=== PATIENT | female | born 1940 | race Caucasian/White ===

== ENCOUNTER 2016-10-16 14:07 | Emergency (ER) | payer OTHER ==
[~2016-10-16] VITALS: Ht 170.2 cm; Wt 68.0 kg
[~2016-10-16 14:07] MED LIST: ALPR-411 PO; ASPI81TA21 PO; FAMO20TA9 PO; GATI0.5S; HYDR-5688 PO; KETO0.5S22; LPR25 PO; MECL1TAB42 PO; NTRGSL/4 UT; OMEP20CA9 PO; SERT1TAB71 PO; SIMV20TA5 PO
[2016-10-16 14:10] VITALS: Ht 170.2 cm; Wt 68.0 kg
[2016-10-16] MEDS ORDERED: BUPIVACAINE 0.5 % 5 MG/1 ML MPF 30ML VIAL INFIL ONE (14:45)
[2016-10-16] MEDS ORDERED: XYLOCAINE 1%/SOD BICARB 20 ML VIAL INFIL ONE (14:45)
[2016-10-16] MEDS ORDERED: DIPHTHERIA/TETANUS/PERTUSSIS 0.5 ML SYR/VIAL IM. ONE (14:45)
--- NOTE | 2016-10-16 15:38 | EMERGENCY ROOM VISIT NOTE ---
ED Visit Note First contact with patient: 14:17 Chief Complaint: RIGHT Index and Middle Finger Laceration History of Present Illness: This patient is a 76-year-old female who presents to the Emergency Department this afternoon for evaluation of their RIGHT index finger laceration. Patient sustained the laceration while using an onion slicer. They report a moderate amount of bleeding initially. They deny any numbness or tingling into the distal extremity. They report no decreased range of motion of the affected digit. They have tried nothing for the pain. Patient rates her current discomfort as a 0/10. Patient's Tetanus status is not currently up-to-date. Medications: Reviewed and discussed with the patient. Allergies: Codeine, Lipitor PMH: No pertinent past medical history. SHx: Patient is a 76-year-old female who lives locally. ROS: All pertinent positive and negative review of systems are appropriately documented in the History of Present Illness. Physical Exam: VITAL SIGNS - Vital signs and nursing notes were reviewed. GENERAL - 76-year-old female appearing her stated age who is in no acute distress. Communicates well with provider and answers questions appropriately. SKIN - There is a 3.0 cm long laceration noted to the palmar surface of the distal RIGHT 2nd digit overlying the DIP joint. The edges gape apart with traction. No foreign bodies appreciated. Upon further examination there are no deep structures including vessel, tendon, or bony structures appreciated. There is no active bleeding noted. MUSCULOSKELETAL - Laceration as described above. +5/5 strength appreciated of the affected digit. Full range of motion of the affected digit. NEUROLOGIC - Spinothalamic tract was found to be intact with ability to discriminate sharp versus dull sensation. No sensory defects of the dorsal column were appreciated utilizing light touch for evaluation. VASCULAR - Capillary refill was brisk. ED Course: Patient was seen and evaluated by myself. Laceration repair was performed by the physician assistant fitness manager student under my direct supervision. Costs and benefits of performing primary wound closure versus no repair were discussed with the patient who verbalizes understanding. Verbal consent was obtained prior to performing the procedure. 4.0 cc of a 1-1 solution of 1% buffered lidocaine and 0.5% Marcaine was used to perform a digital block of the RIGHT 2nd digit. The wound was cleansed and prepped in the typical sterile fashion utilizing normal saline and Betadine. The wound was sterilely draped. Once proper anesthetization was established, the wound was further examined and demonstrated a full thickness laceration without disruption of the tendons or bony structures. The wound was copiously irrigated with normal saline and Betadine. The wound was closed using 14 simple, 5-0 nylon sutures with the wound edges being well approximated. Patient tolerated the procedure well. No complications were met. The wound was cleansed and dressed with a Bacitracin dressing. A metal splint was applied to the finger for comfort. Patient received their Adacel vaccination. Patient educated on worrisome symptoms for return visit to the Emergency Department. Patient discharged to home in good condition. Impression: RIGHT 2nd Digit Laceration Discharge Instructions: You have received 14 sutures on your RIGHT Index Finger. These sutures are NOT dissolvable and WILL need to be removed by a health care provider in 10-12 days. You can return to the Emergency Department or contact your Primary Care Provider to have the sutures removed. Please wear the splint for comfort until the sutures are removed. Proper wound care is essential for adequate wound healing and infection prevention. You can shower and clean the wound with soap and water. Do not scour over the wound, pat dry with a towel. Do not submerse the wound (i.e. bathe or dish wash) until the sutures have been removed. You can use an antibiotic ointment with a dressing over the wound for the next 3-4 days. After this time you may leave the wound dry and open to the air. If crust develops over the wound you can use a Q-tip to apply a 1:1 peroxide:water solution to clean the wound. Look for signs of infection of the wound including: increased pain, swelling, foul discharge, streaking, or increased temperature. If any of these are noticed you should return to the Emergency Department for further assessment and treatment. As with any laceration you may have received nerve damage to the surrounding tissues. This damage may or may not be permanent. You should keep the area covered with sunscreen for the first 6 months to 1 year when at risk for exposure to help minimize scarring. You can also use scar reducing creams or Vitamin E oil to help minimize scarring. For pain control, you can use the following [id number] medicines (if >12 yo): - Regular strength (325mg/tab) Tylenol (acetaminophen) 2 tabs every 4-6 hours as needed. Do not exceed 12 tablets in a 24 hour period. Avoid taking more than 4 grams (4000 mg) of Tylenol per day. This includes any other sources of acetaminophen you may take on a regular basis. - Regular strength (200 mg/tab) Advil (ibuprofen) 1-2 tabs every 4-6 hours as needed. Do not exceed a dose of 3200 mg per day. Return to the emergency department if your symptoms worsen despite treatment course outlined above. Current/Historical Medications Scheduled Aspirin Enteric Coated (Ecotrin Or Generic), 81 MG PO DAILY Famotidine (Pepcid), 20 MG PO QAM Metoprolol Tartrate (Lopressor), 12.5 MG PO BID Nitroglycerin (Nitrostat), 0.4 MG UT PRN Omeprazole (Prilosec), 20 MG PO DAILY Sertraline Hcl (Zoloft), 50 MG PO DAILY Simvastatin (Zocor), 20 MG PO QPM Scheduled PRN Alprazolam (Xanax), 0.5 MG PO TID PRN for Anxiety Hydrocodone/Acetaminophen 5MG/325MG (Mutual 5MG/325MG), 1 TAB PO BID PRN for Pain Meclizine Hcl (Meclizine Hcl), 25 MG PO TID PRN for DIZZY Miscellaneous Medications Gatifloxacin (Ophth) (Zymaxid) Ketorolac Tromethamine (Ophth) (Ketorolac Tromethamine) Allergies Coded Allergies: Codeine (Verified Allergy, Unknown, RASH, 10/16/16) Uncoded Allergies: LIPTOR (Allergy, Mild, RASH, 10/04/14) Departure Information Impression Primary Impression: Finger laceration Dispostion Home / Self-Care Condition GOOD Referrals Pepito Rios D.O. (PCP) Patient Instructions ED Laceration Hand, My [facility] Additional Instructions You have received 14 sutures on your RIGHT Index Finger. These sutures are NOT dissolvable and WILL need to be removed by a health care provider in 10-12 days. You can return to the Emergency Department or contact your Primary Care Provider to have the sutures removed. Please wear the splint for comfort until the sutures are removed. Proper wound care is essential for adequate wound healing and infection prevention. You can shower and clean the wound with soap and water. Do not scour over the wound, pat dry with a towel. Do not submerse the wound (i.e. bathe or dish wash) until the sutures have been removed. You can use an antibiotic ointment with a dressing over the wound for the next 3-4 days. After this time you may leave the wound dry and open to the air. If crust develops over the wound you can use a Q-tip to apply a 1:1 peroxide:water solution to clean the wound. Look for signs of infection of the wound including: increased pain, swelling, foul discharge, streaking, or increased temperature. If any of these are noticed you should return to the Emergency Department for further assessment and treatment. As with any laceration you may have received nerve damage to the surrounding tissues. This damage may or may not be permanent. You should keep the area covered with sunscreen for the first 6 months to 1 year when at risk for exposure to help minimize scarring. You can also use scar reducing creams or Vitamin E oil to help minimize scarring. For pain control, you can use the following [id number] medicines (if >12 yo): - Regular strength (325mg/tab) Tylenol (acetaminophen) 2 tabs every 4-6 hours as needed. Do not exceed 12 tablets in a 24 hour period. Avoid taking more than 4 grams (4000 mg) of Tylenol per day. This includes any other sources of acetaminophen you may take on a regular basis. - Regular strength (200 mg/tab) Advil (ibuprofen) 1-2 tabs every 4-6 hours as needed. Do not exceed a dose of 3200 mg per day. Return to the emergency department if your symptoms worsen despite treatment course outlined above. Problem Qualifiers Primary Impression: Finger laceration Encounter type: initial encounter Qualified Codes: S61.219A - Laceration without foreign body of unspecified finger without damage to nail, initial encounter
[2016-10-16] MEDS ORDERED: ACET-1311 PO (16:08)
[2016-10-16 16:35] VITALS: BP 162/99; PULSE 84; O2SAT 98
== END 2016-10-16 16:37 | disposition home or self-care (01) ==
LOC: C.EDB 14:10 → C.EDD 16:37
DX: S61.219A Laceration without foreign body of unspecified finger without damage to nail, initial encounter (principal); W26.8XXA Contact with other sharp object(s), not elsewhere classified, initial encounter; Z23 Encounter for immunization

== ENCOUNTER 2022-01-15 17:43 | Inpatient (IN) ==
[2022-01-15] MEDS ORDERED: MoRPHine SULFATE 2 MG/ML CARP IV STA (18:05)
[2022-01-15] MEDS ORDERED: ACETAMINOPHEN 1000 MG/100 ML IV IV STA (18:06)
--- NOTE | 2022-01-15 18:08 | Emergency Department Note ---
Impression & Plan Fall, Compression fracture of T8 vertebra ADMIT ED Provider Note HPI: The patient is an 81-year-old female who presents emergency department with a chief complaint of fall. Patient has had multiple falls recently at home, she was recently diagnosed with a T8 compression fracture after a fall. She is currently at home, she was able to use a walker, she states that she used her walker to get to the side of the bed where she was planning to sit down but then she "missed" her seat and fell on her back and also hit the back of her head. Patient complains of back pain on arrival, according to her daughter at the bedside she has not been eating or drinking very much over the past several days. She has been generally weak and not doing well at home. Home nursing evaluated the patient today after a fall and recommended the patient be evaluated at the emergency room for further care. On arrival here to the ED the patient is alert, she is frail-appearing, she is hypertensive on arrival, normal heart rate, she is saturating well on room air on my initial assessment. She complains of pain in the epigastric region as well as the right lateral ribs, states she also has pain in her mid back area, she does maintain flexion at the hips bilaterally and motor and sensory function is intact distally in the lower extremities ROS: -MSK: Mechanical fall, right lateral rib pain, mid back pain -GI: Abdominal discomfort status post fall *10 point review systems was conducted and is otherwise negative unless stated above *Outpatient medications and allergy history reviewed PE: General: Alert, NAD HEENT: Normocephalic, atraumatic Eyes: Extraocular eye movement is intact, no scleral erythema Pulmonary: Clear to auscultation bilaterally, no wheezing Cardio: Regular rate and rhythm GI: Abdomen is soft, nontender : No suprapubic tenderness MSK: No evidence of trauma or malformation of the extremities, no edema Skin: No evidence of rash Neuro: Alert, no focal deficits Psychiatric: Cooperative engine monitor: - An order was placed for continuous cardiac monitoring - Patient was noted to be in sinus rhythm with rate of 70 EKG: Rate: 76 Rhythm: Normal sinus rhythm Intervals: Within normal limits ST changes: No ST elevation Time: 1753 Medical Decision Making: Patient presented to the emergency department after mechanical fall today at home, CT imaging of the head as well as CT imaging of the cervical spine did not show any evidence of acute traumatic injuries. CT imaging of the chest, abdomen, and pelvis obtained with IV contrast did not show any evidence of acute traumatic injuries aside from the known T8 burst fracture from the patient's previous presentation. There is also mention of some urothelial thickening at the right UPJ level consistent with possible neoplasm of which the patient and her daughter were informed, also mention of some changes around the gallbladder wall concerning for possible gallbladder pathology. Patient has not had any nausea or vomiting, she states that she has had this worked up previously as this was noted on imaging prior and she has not required any surgical intervention. She complains of some pain over the lateral ribs but Rodriguez sign is negative on my exam. She has no transaminitis, no elevated bilirubin level. Lab work otherwise is generally unremarkable, HDS with some new anemia with Hb 11.6, she has not had any gross bleeding,no leukocytosis, no critical electrolyte abnormalities are noted. Patient is in sinus rhythm on the monitor and hemodynamically stable. She is frail-appearing, weak, she has had some ambulatory difficulties over the past week and family is concerned that she is no longer safe at home, she would likely benefit from placement in a rehabilitation facility and therefore case was discussed with the on-call hospitalist service and the patient will be admitted to a [facility] bed for further management and placement. Patient's urinalysis did return concerning for infection, nitrite positive, she was given ceftriaxone and blood cultures were drawn in the ED. She is afebrile and has no leukocytosis but does admit to a sensation of malodorous urine recently. Patient and her daughter at the bedside are in agreement to the above plan and t he patient was admitted in stable condition for further care. Diagnosis: 1. Mechanical fall 2. Pain, T8 burst fracture, known 3. Generalized weakness 4. Ambulatory dysfunction 5. Urothelial thickening at right UPJ on CT imaging 6. Anemia 7. UTI, acute Disposition: Admission Tony Centeno DO Emergency Medicine Past Med/Surg History Medical History (Updated 01/15/22 @ 21:01 by Mariya Robertson PA-C) Left forearm fracture Surgical History (Updated 01/15/22 @ 20:53 by Mariya Robertson PA-C) H/O eye surgery Hx of appendectomy Family History (Updated 01/15/22 @ 20:56 by ATIYA LeeC) Mother Diabetes Father Heart disease Social History (Updated 01/15/22 @ 20:57 by Mariya Robertson PA-C) Smoking Status: Former smoker Tobacco Type: Cigarettes Number of Years Since Quit: 11; Hx Alcohol Use: No Feels Safe at Home: Yes Allergies Allergies Allergy/AdvReac Type Severity Reaction Status Date / Time codeine Allergy Intermediate RASH Verified 01/15/22 18:37 oxycodone Allergy Unknown Unknown Verified 01/15/22 18:37 LIPTOR Allergy Intermediate RASH Uncoded 01/15/22 18:37 Home Meds Home Medications Medication Instructions Recorded Confirmed acetaminophen 500 mg tablet 1,000 mg PO Q6H PRN 01/10/22 01/15/22 (Tylenol Extra Strength) alprazolam 0.5 mg tablet 0.5 mg PO Q6 PRN 01/10/22 01/15/22 aspirin 81 mg tablet,delayed 81 mg PO DAILY 01/10/22 01/15/22 release docusate sodium 100 mg capsule 100 mg PO BID PRN 01/10/22 01/15/22 (Colace) ferrous fumarate-vitamin C 66 1 tab PO QAM 01/10/22 01/15/22 mg-125 mg chewable tablet meclizine 25 mg tablet 25 mg PO TID PRN 01/10/22 01/15/22 metoprolol tartrate 25 mg tablet 25 mg PO BID 01/10/22 01/15/22 nitroglycerin 0.4 mg sublingual 0.4 mg SUBLINGUAL DIRECTED PRN 01/10/22 01/15/22 tablet pantoprazole 40 mg tablet,delayed 40 mg PO QAM 01/10/22 01/15/22 release polyethylene glycol 3350 17 gram 17 g PO DAILY PRN 01/10/22 01/15/22 oral powder packet (Miralax) sertraline 100 mg tablet 100 mg PO QAM 01/10/22 01/15/22 simvastatin 20 mg tablet 20 mg PO QPM 01/10/22 01/15/22 Previous Rx's Medication Instructions Recorded tramadol 50 mg tablet (Ultram) 50 mg PO Q6H PRN #30 tab 01/10/22 Results & Data (ED) Vital Signs Vital Signs - 24 hr 01/15/22 17:48 01/15/22 18:30 01/15/22 19:26 Temperature 36.6 C Temperature Source Oral Pulse Rate 78 80 Pulse Rate [Apical] Pulse Rhythm [Apical] Pulse Strength [Apical] Respiratory Rate 20 23 18 Respiratory Effort / Characteristics Non-Labored Respiratory Depth Normal Respiratory Pattern Regular Blood Pressure 174/71 H 165/74 H Blood Pressure [Right Arm] 141/68 H Blood Pressure Mean 105 104 Blood Pressure Mean [Right Arm] 92 Blood Pressure Position Lying Pulse Oximetry 96 95 95 Oxygen Delivery Method Room Air Room Air Sepsis Recent Fever Within 48 Hours No Sepsis New/Unexplained Change in Mental Status No Sepsis Action Taken by Nursing No Action Required 01/15/22 21:00 Temperature 36.8 C Temperature Source Oral Pulse Rate Pulse Rate [Apical] 85 Pulse Rhythm [Apical] Regular Pulse Strength [Apical] Normal Respiratory Rate 16 Respiratory Effort / Characteristics Non-Labored Spontaneous Respiratory Depth Normal Respiratory Pattern Blood Pressure Blood Pressure [Right Arm] 134/65 Blood Pressure Mean Blood Pressure Mean [Right Arm] 88 Blood Pressure Position Pulse Oximetry 97 Oxygen Delivery Method Room Air Sepsis Recent Fever Within 48 Hours Sepsis New/Unexplained Change in Mental Status Sepsis Action Taken by Nursing Laboratory Data Result diagrams: 01/15/22 17:44 01/15/22 17:44 Lab Results 01/15/22 01/15/22 01/15/22 Range/Units 17:44 17:44 17:44 WBC 5.06 (4.8-10.8) K/uL RBC 3.57 L (4.2-5.4) M/uL Hgb 11.6 L (12.0-16.0) g/dL Hct 35.4 L (37-47) % MCV 99.2 (80-100) fL MCH 32.5 (25-34) pg MCHC 32.8 (32-36) g/dL RDW Std Deviation 48.0 H (36.4-46.3) fL RDW Coeff of Jayson 13.3 (11.5-14.5) % Plt Count 216 (130-400) K/uL MPV 10.0 (7.4-10.4) fL Immature Gran % (Auto) 0.2 % Neut % (Auto) 66.0 % Lymph % (Auto) 22.1 % [place] % (Auto) 9.9 % Eos % (Auto) 1.6 % Baso % (Auto) 0.2 % Neut # (Auto) 3.34 (1.4-6.5) K/uL Lymph # (Auto) 1.12 L (1.2-3.4) K/uL [place] # (Auto) 0.50 (0.11-0.59) K/uL Eos # (Auto) 0.08 (0-0.5) K/uL Baso # (Auto) 0.01 (0-0.2) K/uL Immature Gran # (Auto) 0.01 (0.00-0.02) K/uL PT 10.9 (9.0-12.0) Seconds INR 1.0 (0.9-1.1) Sodium 142 (136-145) mmol/L Potassium 3.8 (3.5-5.1) mmol/L Chloride 107 (98-107) mmol/L Carbon Dioxide 29 (21-32) mmol/L Anion Gap 6 (3-11) BUN 22 (6-23) mg/dl Creatinine 0.66 (0.6-1.2) mg/dl Est Cr Clr Drug Dosing 55.5 ml/min Est GFR ( Amer) 94.7 ml/min Est GFR (Non-Af Amer) 81.7 ml/min BUN/Creatinine Ratio 33.3 H (10-20) Glucose 87 (70-99(Fasting)) mg/dl Calcium 9.1 (8.5-10.1) mg/dl Total Bilirubin 0.4 (0.2-1.0) mg/dl AST 15 (13-39) U/L ALT 25 (7-52) U/L Alkaline Phosphatase 103 (34-104) U/L Total Protein 5.8 L (6.0-8.3) gm/dl Albumin 3.6 (3.4-5.0) gm/dl Globulin 2.2 L (2.5-4.0) gm/dl Albumin/Globulin Ratio 1.6 (0.9-2) Urine Color Urine Appearance (Clear) Urine pH (4.5-7.5) Ur Specific [place] (1.000-1.030) Urine Protein (Negative) Urine Glucose (UA) (Negative) Urine Ketones (Negative) Urine Blood (Negative) Urine Nitrite (Negative) Urine Bilirubin (Negative) Urine Urobilinogen (Negative) Ur Leukocyte Esterase (Negative) Urine WBC (Auto) (0-5) /hpf Urine RBC (Auto) (0-4) /hpf U Hyaline Cast (Auto) (0-5) /lpf U Epithel Cells (Auto) (0-5) /lpf Urine Bacteria (Auto) (Negative) Urine Yeast SARS-CoV-2, RNA, NAAT (NEGATIVE) 01/15/22 01/15/22 Range/Units 19:30 19:35 WBC (4.8-10.8) K/uL RBC (4.2-5.4) M/uL Hgb (12.0-16.0) g/dL Hct (37-47) % MCV (80-100) fL MCH (25-34) pg MCHC (32-36) g/dL RDW Std Deviation (36.4-46.3) fL RDW Coeff of Jayson (11.5-14.5) % Plt Count (130-400) K/uL MPV (7.4-10.4) fL Immature Gran % (Auto) % Neut % (Auto) % Lymph % (Auto) % [place] % (Auto) % Eos % (Auto) % Baso % (Auto) % Neut # (Auto) (1.4-6.5) K/uL Lymph # (Auto) (1.2-3.4) K/uL [place] # (Auto) (0.11-0.59) K/uL Eos # (Auto) (0-0.5) K/uL Baso # (Auto) (0-0.2) K/uL Immature Gran # (Auto) (0.00-0.02) K/uL PT (9.0-12.0) Seconds INR (0.9-1.1) Sodium (136-145) mmol/L Potassium (3.5-5.1) mmol/L Chloride (98-107) mmol/L Carbon Dioxide (21-32) mmol/L Anion Gap (3-11) BUN (6-23) mg/dl Creatinine (0.6-1.2) mg/dl Est Cr Clr Drug Dosing ml/min Est GFR ( Amer) ml/min Est GFR (Non-Af Amer) ml/min BUN/Creatinine Ratio (10-20) Glucose (70-99(Fasting)) mg/dl Calcium (8.5-10.1) mg/dl Total Bilirubin (0.2-1.0) mg/dl AST (13-39) U/L ALT (7-52) U/L Alkaline Phosphatase (34-104) U/L Total Protein (6.0-8.3) gm/dl Albumin (3.4-5.0) gm/dl Globulin (2.5-4.0) gm/dl Albumin/Globulin Ratio (0.9-2) Urine Color Yellow Urine Appearance Clear (Clear) Urine pH 5.5 (4.5-7.5) Ur Specific [place] > 1.045 H (1.000-1.030) Urine Protein Trace H (Negative) Urine Glucose (UA) Negative (Negative) Urine Ketones 1+ H (Negative) Urine Blood 2+ H (Negative) Urine Nitrite Positive A (Negative) Urine Bilirubin Negative (Negative) Urine Urobilinogen Negative (Negative) Ur Leukocyte Esterase 1+ H (Negative) Urine WBC (Auto) 10-30 H (0-5) /hpf Urine RBC (Auto) 0-4 (0-4) /hpf U Hyaline Cast (Auto) 1-5 (0-5) /lpf U Epithel Cells (Auto) 0-5 (0-5) /lpf Urine Bacteria (Auto) 4+ H (Negative) Urine Yeast Not Reportable SARS-CoV-2, RNA, NAAT NEGATIVE (NEGATIVE) Administered Medications Discontinued Medications Acetaminophen (Acetaminophen 1000 Mg/100 Ml Iv) 1,000 mg IV NOW STA Stop: 01/15/22 18:07 Last Admin: 01/15/22 18:11 Dose: 1,000 mg Documented by: [id number] Sodium Chloride (Nss) 500 mls @ 999 mls/hr IV .Q31M KIEAR Stop: 01/15/22 18:45 Last Infusion: 01/15/22 18:46 Dose: 0 mls/hr Documented by: [id number] Admin: 01/15/22 18:11 Dose: 999 mls/hr Documented by: [id number] Ioversol (Optiray 320 100ml) 94 ml IV ONCE ONE Stop: 01/15/22 18:48 Last Admin: 01/15/22 18:47 Dose: 94 ml Documented by: [id number] Morphine Sulfate (Morphine Sulfate 2 Mg/Ml Carp) 2 mg IV NOW STA Stop: 01/15/22 18:06 Last Admin: 01/15/22 18:10 Dose: 2 mg Documented by: [id number] Imaging Data Radiologist's Impression: Abdomen/Pelvis CT 01/15/22 18:[address] WITH IV CONTRAST CT DOSE: HISTORY: fall, abd pain and back pain, recent T8 fx TECHNIQUE: Multiaxial CT images of the abdomen and pelvis were performed following the use of intravenous contrast. A dose lowering technique was utilized adhering to the principles of ALARA. COMPARISON STUDY: None. FINDINGS: Emphysema again noted at the lung bases. There is a large hiatus hernia. No pneumoperitoneum. No pneumatosis. Old, healed left pubic rami fractures. Old mild compression deformities at L1 and L5. No acute fractures identified within the visualized osseous structures of the abdomen or pelvis. Mild intrahepatic bile duct dilatation. The common bile duct is at the upper limits of normal for age measuring 8 mm. The gallbladder is mildly distended and there is questionable mild gallbladder wall thickening. Adenomyomatosis noted at the gallbladder fundus. The liver enhances normally. Trace perisplenic fluid. Th e spleen enhances normally. The adrenal glands are unremarkable. The kidneys enhance normally. No hydronephrosis. There is mild urothelial thickening within the right ureteropelvic junction best seen on image 151. The bladder, uterus, bilateral adnexa are unremarkable. No significant pelvic free fluid. Moderate well-formed stool within the rectum. Colonic diverticulosis. No evidence for acute diverticulitis. No bowel wall thickening or obstruction. No retroperitoneal lymphadenopathy or hematoma. Moderate calcified plaque within the normal caliber abdominal aorta. The main portal vein is patent. IMPRESSION: 1. No acute traumatic process within the abdomen or pelvis. 2. Question mild gallbladder wall thickening. Consider follow-up ultrasound if the patient is complaining of right upper quadrant pain. Otherwise, follow-up GI consultation recommended. 3. Mild focal urothelial thickening at the right ureteropelvic junction. This could represent a mild pyelitis less likely a urothelial lesion. Follow-up urology consultation recommended. 4. Colonic diverticulosis. No evidence for acute diverticulitis. 5. Large hiatus hernia. ACT 112: Negative or not required by law. Electronically signed by: Gabino Lyon M.D. 01/15/2022 7:[address] 01/15/22 18:[address] DOSE: HISTORY: Neck pain. fall TECHNIQUE: Multiaxial CT images of the cervical spine were performed and reformatted in the sagittal and coronal plane without the use of contrast. A dose lowering technique was utilized adhering to the principles of ALARA. COMPARISON: Cervical spine CT 01/10/2022.. FINDINGS: No fractures. No subluxation. Prevertebral soft tissues and the C1-C2 interval are intact. No pneumothorax. IMPRESSION: No fractures within the cervical spine. ACT 112: Negative or not required by law. Electronically signed by: Gabino Lyon M.D. 01/15/2022 6:[address] 01/15/22 18:[address] WITH CONTRAST CT DOSE: 1396.53 mGy.cm HISTORY: fall, back pain TECHNIQUE: Multiaxial CT images of the chest were performed following the intravenous administration of contrast. A dose lowering technique was utilized adhering to the principles of ALARA. COMPARISON: Chest CT 01/10/2022. FINDINGS: Thyroid: Normal in size and heterogeneous in attenuation. Thoracic aorta: There is advanced atherosclerotic calcification of the thoracic aorta. There is mild ectasia of the ascending thoracic aorta which measures up to 3.5 cm diameter. The remainder of the thoracic aorta is normal in caliber, and the arch demonstrates standard 3-vessel anatomy. Heart: The heart is mildly enlarged noting a trace pericardial effusion. The coronary arteries and mitral annulus are densely calcified. Lungs and pleural spaces: Emphysema is noted. There is no airspace consolidation, pleural effusion, or pneumothorax. Foci of scarring/atelectasis are seen throughout both lungs. The trachea and central airways appear clear. A calcified granuloma is noted in the left lower lobe. Mediastinum: There is no mediastinal hematoma or lymphadenopathy. Chloe: Not well assessed without IV contrast. Axillae: There is no axillary lymphadenopathy. Upper abdomen: There is a large hiatal hernia. The majority of the stomach is located in the thoracic cavity. Only. Skeletal structures: The skeletal structures are osteopenic. There is an acute burst fracture of T8 with pzor-ew-peypulfu loss of height. There is associated paravertebral edema and minimally retropulsed fragments. A mild superior endplate compression deformity of L1 is likely chronic. No lytic or blastic bony lesions are seen. Advanced arthritic change is noted in the shoulders. There are chronic/healed left posterior rib fractures. No acute/displaced rib fracture is identified. IMPRESSION: 1. No significant change in the acute burst fracture of T8 with mild to moderate loss of height. 2. No additional acute fracture is identified. 3. Cardiomegaly and emphysema. 4. There is no airspace consolidation, pleural effusion, or pneumothorax. 5. Large hiatal hernia. 6. Additional findings as above. ACT 112: Negative or not required by law. Electronically signed by: Gabino Lyon M.D. 01/15/2022 7:[address] 01/15/22 18:[address] DOSE: HISTORY: fall TECHNIQUE: Multiaxial CT images of the head were performed without the use of intravenous contrast. Automated exposure control was utilized for this study. A dose lowering technique was utilized adhering to the principles of ALARA. Comparison: Head CT 01/10/2022. Findings: The paranasal sinuses and mastoid air cells are clear. The calvarium and skull base are intact. There is no mass, hematoma, midline shift, acute infarct. White matter hypodensity is nonspecific but suggestive of microvascular ischemic change. The ventricles and sulci demonstrate mild age-related involutional changes. 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 Impression: No significant change compared to the prior study. No acute intracranial abnormality. ACT 112: Negative or not required by law. Electronically signed by: Gabino Lyon M.D. 01/15/2022 6:51 PM Hip/Pelvis X-Ray 01/15/22 18:04 XR hip FERNANDO 2v w pelvis CLINICAL HISTORY: Fall. Bilateral hip pain. COMPARISON STUDY: None. FINDINGS: No acute fracture or dislocation within the pelvis or hips. 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 The sacrum appears intact. There are old, healed left pubic ring fractures. Contrast within the bladder from the recent CT examination. Vascular calcifications are noted. IMPRESSION: No acute fracture or dislocation within the pelvis or hips. ACT 112: Negative or not required by law. Electronically signed by: Gabino Lyon M.D. 01/15/2022 7:19 PM Discharge Plan Visit Data Chief Complaint: Fall ED Provider: Tony Centeno Discharge Problem: Fall, Compression fracture of T8 vertebra Forms Stand Alone Forms: [facility] Prescriptions Prescriptions: No Action sertraline 100 mg tablet 100 mg PO QAM RF: 0 alprazolam 0.5 mg tablet 0.5 mg PO Q6 PRN (Reason: Anxiety) RF: 0 pantoprazole 40 mg tablet,delayed release (DR/EC) 40 mg PO QAM RF: 0 simvastatin 20 mg tablet 20 mg PO QPM RF: 0 Vitron-C 66-125 mg Tablet,Chewable 1 tab PO QAM RF: 0 metoprolol tartrate 25 mg tablet 25 mg PO BID RF: 0 polyethylene glycol 3350 [Miralax] 17 gram Powder In Packet 17 g PO DAILY PRN (Reason: Constipation) RF: 0 aspirin [Aspir-Low] 81 mg Tablet,Delayed Release (Dr/Ec) 81 mg PO DAILY RF: 0 acetaminophen [Tylenol Extra Strength] 500 mg Tablet 1,000 mg PO Q6H PRN (Reason: Pain) RF: 0 meclizine 25 mg Tablet 25 mg PO TID PRN (Reason: Dizziness) RF: 0 nitroglycerin 0.4 mg tablet, sublingual 0.4 mg sublingual DIRECTED PRN (Reason: Chest Pain) RF: 0 docusate sodium [Colace] 100 mg Capsule 100 mg PO BID PRN (Reason: Constipation) RF: 0 tramadol [Ultram] 50 mg tablet 50 mg PO Q6H PRN (Reason: pain) Qty: 30 RF: 0 Referrals Referrals: Pepito Rios DO [Primary Care Provider] - Discharge Problem: Fall Qualifiers: Encounter type: initial encounter Qualified Code(s): W19.XXXA - Unspecified fall, initial encounter Compression fracture of T8 vertebra Qualifiers: Encounter type: subsequent encounter Fracture healing: with routine healing Qualified Code(s): S22.060D - Wedge compression fracture of T7-T8 vertebra, subsequent encounter for fracture with routine healing
[2022-01-15 18:14] LABS: Basophils # (auto) 0.01 K/uL (0-0.2); Basophils % (auto) 0.2 %; Eosinophils # (auto) 0.08 K/uL (0-0.5); Eosinophils % (auto) 1.6 %; Hematocrit (blood only) 35.4 % (37-47); Hemoglobin 11.6 g/dL (12.0-16.0); Immature Granulocytes # (auto) 0.01 K/uL (0.00-0.02); Immature Granulocytes % (auto) 0.2 %; Lymphocytes # (auto) 1.12 K/uL (1.2-3.4); Lymphocytes % (auto) 22.1 %; Mean Corpuscular Hemoglobin 32.5 pg (25-34); Mean Corpuscular Hgb Conc 32.8 g/dL (32-36); Mean Corpuscular Volume 99.2 fL (80-100); Monocytes % (auto) 9.9 %; Neutrophils # (auto) 3.34 K/uL (1.4-6.5); Platelet Count 216 K/uL (130-400); RDW Coefficient of Variation 13.3 % (11.5-14.5); Red Blood Count 3.57 M/uL (4.2-5.4); White Blood Count 5.06 K/uL (4.8-10.8)
[2022-01-15] MEDS ORDERED: SODIUM CHLORIDE 0.9% 500 ML IV SCH (18:15)
[2022-01-15 18:31] LABS: Prothrombin Time 10.9 Seconds (9.0-12.0)
[2022-01-15 18:33] LABS: Albumin Globulin Ratio 1.6 (0.9-2); Albumin Level 3.6 gm/dl (3.4-5.0); BUN Creatinine Ratio 33.3 (10-20); Bilirubin,Total 0.4 mg/dl (0.2-1.0); Calcium 9.1 mg/dl (8.5-10.1); Creatinine Clr Calc Pharmacy 55.5 ml/min; Est GFR (African American) 94.7 ml/min; Est GFR (Non-African American) 81.7 ml/min; Globulin 2.2 gm/dl (2.5-4.0); Potassium 3.8 mmol/L (3.5-5.1); Total Protein 5.8 gm/dl (6.0-8.3)
[2022-01-15] MEDS ORDERED: OPTIRAY 320 100ml IV ONE (18:47)
--- NOTE | 2022-01-15 18:52 | CT Scan Report ---
HEAD CT NONCONTRAST CT DOSE: HISTORY: fall TECHNIQUE: Multiaxial CT images of the head were performed without the use of intravenous contrast. A utomated exposure control was utilized for this study. A dose lowering technique was utilized adheri ng to the principles of ALARA. Comparison: Head CT 01/10/2022. Findings: The paranasal sinuses and mastoid air cells are clear. The calvarium and skull base are int act. There is no mass, hematoma, midline shift, acute infarct. White matter hypodensity is nonspecifi c but suggestive of microvascular ischemic change. The ventricles and sulci demonstrate mild age-rela bryan involutional changes. Old lacunar infarcts again noted within the cerebellar hemispheres and righ t basal ganglia. Impression: No significant change compared to the prior study. No acute intracranial abnormality. ACT 112: Negative or not required by law. Electronically signed by: Gabino Lyon M.D. 01/15/2022 6:51 PM
--- NOTE | 2022-01-15 18:57 | CT Scan Report ---
CERVICAL SPINE CT CT DOSE: HISTORY: Neck pain. fall TECHNIQUE: Multiaxial CT images of the cervical spine were performed and reformatted in the sagittal and coronal plane without the use of contrast. A dose lowering technique was utilized adhering to e principles of ALARA. COMPARISON: Cervical spine CT 01/10/2022.. FINDINGS: No fractures. No subluxation. Prevertebral soft tissues and the C1-C2 interval are intact. No pneumothorax. IMPRESSION: No fractures within the cervical spine. ACT 112: Negative or not required by law. Electronically signed by: Gabino Lyon M.D. 01/15/2022 6:54 PM
--- NOTE | 2022-01-15 19:03 | CT Scan Report ---
CHEST CT WITH CONTRAST CT DOSE: 1396.53 mGy.cm HISTORY: fall, back pain TECHNIQUE: Multiaxial CT images of the chest were performed following the intravenous administration of contrast. A dose lowering technique was utilized adhering to the principles of ALARA. COMPARISON: Chest CT 01/10/2022. FINDINGS: Thyroid: Normal in size and heterogeneous in attenuation. Thoracic aorta: There is advanced atherosclerotic calcification of the thoracic aorta. There is mild ectasia of the ascending thoracic aorta which measures up to 3.5 cm diameter. The remainder of the th oracic aorta is normal in caliber, and the arch demonstrates standard 3-vessel anatomy. Heart: The heart is mildly enlarged noting a trace pericardial effusion. The coronary arteries and mi tral annulus are densely calcified. Lungs and pleural spaces: Emphysema is noted. There is no airspace consolidation, pleural effusion, o r pneumothorax. Foci of scarring/atelectasis are seen throughout both lungs. The trachea and central airways appear clear. A calcified granuloma is noted in the left lower lobe. Mediastinum: There is no mediastinal hematoma or lymphadenopathy. Chloe: Not well assessed without IV contrast. Axillae: There is no axillary lymphadenopathy. Upper abdomen: There is a large hiatal hernia. The majority of the stomach is located in the thoracic cavity. Only. Skeletal structures: The skeletal structures are osteopenic. There is an acute burst fracture of T8 w ith [id number] loss of height. There is associated paravertebral edema and minimally retropulse d fragments. A mild superior endplate compression deformity of L1 is likely chronic. No lytic or valerio tic bony lesions are seen. Advanced arthritic change is noted in the shoulders. There are chronic/hea led left posterior rib fractures. No acute/displaced rib fracture is identified. IMPRESSION: 1. No significant change in the acute burst fracture of T8 with mild to moderate loss of height. 2. No additional acute fracture is identified. 3. Cardiomegaly and emphysema. 4. There is no airspace consolidation, pleural effusion, or pneumothorax. 5. Large hiatal hernia. 6. Additional findings as above. ACT 112: Negative or not required by law. Electronically signed by: Gabino Lyon M.D. 01/15/2022 7:00 PM
--- NOTE | 2022-01-15 19:11 | CT Scan Report ---
ABDOMEN AND PELVIS CT WITH IV CONTRAST CT DOSE: HISTORY: fall, abd pain and back pain, recent T8 fx TECHNIQUE: Multiaxial CT images of the abdomen and pelvis were performed following the use of intrave nous contrast. A dose lowering technique was utilized adhering to the principles of ALARA. COMPARISON STUDY: None. FINDINGS: Emphysema again noted at the lung bases. There is a large hiatus hernia. No pneumoperitoneu m. No pneumatosis. Old, healed left pubic rami fractures. Old mild compression deformities at L1 and L5. No acute fractures identified within the visualized osseous structures of the abdomen or pelvis. Mild intrahepatic bile duct dilatation. The common bile duct is at the upper limits of normal for age measuring 8 mm. The gallbladder is mildly distended and there is questionable mild gallbladder wall thickening. Adenomyomatosis noted at the gallbladder fundus. The liver enhances normally. Trace peris plenic fluid. The spleen enhances normally. The adrenal glands are unremarkable. The kidneys enhance normally. No hydronephrosis. There is mild urothelial thickening within the right ureteropelvic junct ion best seen on image 151. The bladder, uterus, bilateral adnexa are unremarkable. No significant pe lvic free fluid. Moderate well-formed stool within the rectum. Colonic diverticulosis. No evidence fo r acute diverticulitis. No bowel wall thickening or obstruction. No retroperitoneal lymphadenopathy o r hematoma. Moderate calcified plaque within the normal caliber abdominal aorta. The main portal vein is patent. IMPRESSION: 1. No acute traumatic process within the abdomen or pelvis. 2. Question mild gallbladder wall thickening. Consider follow-up ultrasound if the patient is complai alfonzo of right upper quadrant pain. Otherwise, follow-up GI consultation recommended. 3. Mild focal urothelial thickening at the right ureteropelvic junction. This could represent a mild pyelitis less likely a urothelial lesion. Follow-up urology consultation recommended. 4. Colonic diverticulosis. No evidence for acute diverticulitis. 5. Large hiatus hernia. ACT 112: Negative or not required by law. Electronically signed by: Gabino Lyon M.D. 01/15/2022 7:10 PM
--- NOTE | 2022-01-15 19:20 | XRay Report ---
XR hip FERNANDO 2v w pelvis CLINICAL HISTORY: Fall. Bilateral hip pain. COMPARISON STUDY: None. FINDINGS: No acute fracture or dislocation within the pelvis or hips. 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 The sacrum appears intact. There are old, healed le ft pubic ring fractures. Contrast within the bladder from the recent CT examination. Vascular calcifi cations are noted. IMPRESSION: No acute fracture or dislocation within the pelvis or hips. ACT 112: Negative or not required by law. Electronically signed by: Gabino Lyon M.D. 01/15/2022 7:19 PM
[2022-01-15 20:06] LABS: Appearance Urine Clear (Clear); Bacteria Urine Automated 4+ (Negative); Bilirubin Urine Negative (Negative); Blood Urine 2+ (Negative); Color Urine Yellow; Epithelial Cell Urine Auto 0-5 /lpf (0-5); Glucose Urine UA Negative (Negative); Ketones Urine 1+ (Negative); Leukocyte Esterase Urine 1+ (Negative); Nitrite Urine Positive (Negative); Protein Urine Trace (Negative); Specific Gravity Urine > 1.045 (1.000-1.030); Urobilinogen Urine Negative (Negative); pH Urine 5.5 (4.5-7.5)
[2022-01-15 20:30] LABS: RBC Urine Automated 0-4 /hpf (0-4)
[2022-01-15] MEDS ORDERED: cefTRIAXone SODIUM 1,000 MG/50 ML BAG IV STA (20:31)
--- NOTE | 2022-01-15 21:03 | History & Physical Report ---
Date of Service January 15, 2022 Assessment & Plan (1) Fall: (2) Pyelitis: (3) UTI (urinary tract infection): Plan: - Admit to med surg with tele - Continue ceftriaxone IV - UA appears to be infected, follow culture, follow blood culture - Imaging reviewed showing possibly pyelitis, will consult urology - Ne leukocytosis, afebrile - Hold tramadol as this could have potentiated more falls within the past few days, will also hold lorazepam. -PT/OT consults -Fall precautions (4) Compression fracture of T8 vertebra: Plan: - Hx of such - Imaging studies are currently negative for new acute fractures (5) AAA (abdominal aortic aneurysm): Plan: - Ascending thoacic aorta measures 3.[address] imaging (6) Osteopenia: Plan: - Check vitamin D level with a.m. labs, consider addition of supplementation with Vit D and calcium (7) Weight loss: Plan: - Will need to review if routine screenings up to date - Encourage PO supplementation with boost DVT ppx: - teds, scds CODE: DNR/DNI-discussed with the patient at bedside Dispo: From home, likely to remain in the hospital x 1-2 days. CM to assist with discharge planning and possible inpatient versus outpatient rehab History of Present Illness Chief Complaint: Fall Primary Care Provider: Pepito Rios, This is an 81 yo F with PMHx of frequent falls, compression fracture of T8, AAA, osteopenia, who presents here after fall earlier today. She attempted to sit down, missed the chair and fell down to the ground. There is a bump on the back of her head, but says this may have been left over from falling when she was here in the ER last . She admits to hitting her head but denies LOC today. There is no family at bedside to say if this was witnessed by anyone else. She has been taking tramadol as prescribed the last few days which was prescribed last week for pain after her fall. She is also taking her xanax tablets at home sometimes up to the 3 times daily as prescribed, and did take one this morning because her back was hurting so badly. She was dismissed from home health last week, and prior to this they were coming twice per week. With lifting her head off the bed she admits to dizziness. She reports poor appetite and has lost 30 lbs within the past few months. She is drinking one boost supplement per day but concerned that she is "wasting away". Pt has not been drinking much fluid in the past week. She denies urinary symptoms today including dysuria, incontinence or increased frequency. She lives at home with her who has dementia, and one of her sons. Allergies Allergy/AdvReac Type Severity Reaction Status Date / Time codeine Allergy Intermediate RASH Verified 01/15/22 18:37 oxycodone Allergy Unknown Unknown Verified 01/15/22 18:37 LIPTOR Allergy Intermediate RASH Uncoded 01/15/22 18:37 Home Medications Medication Instructions Recorded Confirmed Type acetaminophen 500 mg tablet 1,000 mg PO Q6H PRN 01/10/22 01/15/22 History (Tylenol Extra Strength) alprazolam 0.5 mg tablet 0.5 mg PO Q6 PRN 01/10/22 01/15/22 History aspirin 81 mg tablet,delayed 81 mg PO DAILY 01/10/22 01/15/22 History release docusate sodium 100 mg capsule 100 mg PO BID PRN 01/10/22 01/15/22 History (Colace) ferrous fumarate-vitamin C 66 1 tab PO QAM 01/10/22 01/15/22 History mg-125 mg chewable tablet meclizine 25 mg tablet 25 mg PO TID PRN 01/10/22 01/15/22 History metoprolol tartrate 25 mg tablet 25 mg PO BID 01/10/22 01/15/22 History nitroglycerin 0.4 mg sublingual 0.4 mg SUBLINGUAL DIRECTED PRN 01/10/22 01/15/22 History tablet pantoprazole 40 mg tablet,delayed 40 mg PO QAM 01/10/22 01/15/22 History release polyethylene glycol 3350 17 gram 17 g PO DAILY PRN 01/10/22 01/15/22 History oral powder packet (Miralax) sertraline 100 mg tablet 100 mg PO QAM 01/10/22 01/15/22 History simvastatin 20 mg tablet 20 mg PO QPM 01/10/22 01/15/22 History tramadol 50 mg tablet (Ultram) 50 mg PO Q6H PRN #30 tab 01/10/22 01/15/22 Rx Past Med/Surg History Medical History (Updated 01/15/22 @ 21:01 by Mariya Robertson PA-C) Left forearm fracture Surgical History (Updated 01/15/22 @ 20:53 by Mariya Robertson PA-C) H/O eye surgery Hx of appendectomy Family History (Updated 01/15/22 @ 20:56 by Mariya Robertson PA-C) Mother Diabetes Father Heart disease Social History (Updated 01/15/22 @ 20:57 by Mariya Robertson PA-C) Smoking Status: Former smoker Tobacco Type: Cigarettes Number of Years Since Quit: 11; Hx Alcohol Use: No Feels Safe at Home: Yes Review of Systems Review of Systems: Constitutional: No fever, sweats or chills, + generalized back pain Eyes: No diplopia, no worsening or blurred vision ENT: normal hearing, no trouble swallowing Respiratory: No cough, sputum, dyspnea at rest or on exertion Cardiovascular: No chest pain, + has some soreness in the Right rib cage area, images show no fracture, denies chest tightness or palpitations Abdomen: No pain, nausea, vomiting, diarrhea or constipation Musculoskeletal: + chronic back pain, no specific joint pain, calf pain, or swelling Neurologic: + frequent falls, No weakness, numbness/tingling, Psychiatric: No anxiety or depression Skin: No rash or itch Physical Exam Physical Exam: Please refer to attending addendum Results & Data Results & Data ([facility]) Vital Signs (Past 12 Hours) Vital Signs Temp Pulse Resp BP BP Pulse Ox 01/15/22 19:26 18 141/68 H 95 01/15/22 18:30 80 23 165/74 H 95 01/15/22 17:48 36.6 C 78 20 174/71 H 96 Laboratory Results 01/15/22 19:35 Urine Culture - Pending Urine,Clean Catch 01/15/22 01/15/22 01/15/22 19:35 19:30 17:44 WBC RBC Hgb Hct MCV MCH MCHC RDW Std Deviation RDW Coeff of Jayson Plt Count MPV Immature Gran % (Auto) Neut % (Auto) Lymph % (Auto) [place] % (Auto) Eos % (Auto) Baso % (Auto) Neut # (Auto) Lymph # (Auto) [place] # (Auto) Eos # (Auto) Baso # (Auto) Immature Gran # (Auto) PT 10.9 INR 1.0 Sodium Potassium Chloride Carbon Dioxide Anion Gap BUN Creatinine Est Cr Clr Drug Dosing Est GFR ( Amer) Est GFR (Non-Af Amer) BUN/Creatinine Ratio Glucose Calcium Total Bilirubin AST ALT Alkaline Phosphatase Total Protein Albumin Globulin Albumin/Globulin Ratio Urine Color Yellow Urine Appearance Clear Urine pH 5.5 Ur Specific [place] > 1.045 H Urine Protein Trace H Urine Glucose (UA) Negative Urine Ketones 1+ H Urine Blood 2+ H Urine Nitrite Positive A Urine Bilirubin Negative Urine Urobilinogen Negative Ur Leukocyte Esterase 1+ H Urine WBC (Auto) 10-30 H Urine RBC (Auto) 0-4 U Hyaline Cast (Auto) 1-5 U Epithel Cells (Auto) 0-5 Urine Bacteria (Auto) 4+ H Urine Yeast Not Reportable SARS-CoV-2, RNA, NAAT NEGATIVE 01/15/22 01/15/22 17:44 17:44 WBC 5.06 RBC 3.57 L Hgb 11.6 L Hct 35.4 L MCV 99.2 MCH 32.5 MCHC 32.8 RDW Std Deviation 48.0 H RDW Coeff of Jayson 13.3 Plt Count 216 MPV 10.0 Immature Gran % (Auto) 0.2 Neut % (Auto) 66.0 Lymph % (Auto) 22.1 [place] % (Auto) 9.9 Eos % (Auto) 1.6 Baso % (Auto) 0.2 Neut # (Auto) 3.34 Lymph # (Auto) 1.12 L [place] # (Auto) 0.50 Eos # (Auto) 0.08 Baso # (Auto) 0.01 Immature Gran # (Auto) 0.01 PT INR Sodium 142 Potassium 3.8 Chloride 107 Carbon Dioxide 29 Anion Gap 6 BUN 22 Creatinine 0.66 Est Cr Clr Drug Dosing 55.5 Est GFR ( Amer) 94.7 Est GFR (Non-Af Amer) 81.7 BUN/Creatinine Ratio 33.3 H Glucose 87 Calcium 9.1 Total Bilirubin 0.4 AST 15 ALT 25 Alkaline Phosphatase 103 Total Protein 5.8 L Albumin 3.6 Globulin 2.2 L Albumin/Globulin Ratio 1.6 Urine Color Urine Appearance Urine pH Ur Specific [place] Urine Protein Urine Glucose (UA) Urine Ketones Urine Blood Urine Nitrite Urine Bilirubin Urine Urobilinogen Ur Leukocyte Esterase Urine WBC (Auto) Urine RBC (Auto) U Hyaline Cast (Auto) U Epithel Cells (Auto) Urine Bacteria (Auto) Urine Yeast SARS-CoV-2, RNA, NAAT Diagnostic Findings Abdomen/Pelvis CT 01/15/22 18:[address] WITH IV CONTRAST CT DOSE: HISTORY: fall, abd pain and back pain, recent T8 fx TECHNIQUE: Multiaxial CT images of the abdomen and pelvis were performed following the use of intravenous contrast. A dose lowering technique was ut ilized adhering to the principles of ALARA. COMPARISON STUDY: None. FINDINGS: Emphysema again noted at the lung bases. There is a large hiatus hernia. No pneumoperitoneum. No pneumatosis. Old, healed left pubic rami fractures. Old mild compression deformities at L1 and L5. No acute fractures identified within the visualized osseous structures of the abdomen or pelvis. Mild intrahepatic bile duct dilatation. The common bile duct is at the upper limits of normal for age measuring 8 mm. The gallbladder is mildly distended and there is questionable mild gallbladder wall thickening. Adenomyomatosis noted at the gallbladder fundus. The liver enhances normally. Trace perisplenic fluid. The spleen enhances normally. The adrenal glands are unremarkable. The kidneys enhance normally. No hydronephrosis. There is mild urothelial thickening within the right ureteropelvic junction best seen on image 151. The bladder, uterus, bilateral adnexa are unremarkable. No significant pelvic free fluid. Moderate well-formed stool within the rectum. Colonic diverticulosis. No evidence for acute diverticulitis. No bowel wall thickening or obstruction. No retroperitoneal lymphadenopathy or hematoma. Moderate calcified plaque within the normal caliber abdominal aorta. The main portal vein is patent. IMPRESSION: 1. No acute traumatic process within the abdomen or pelvis. 2. Question mild gallbladder wall thickening. Consider follow-up ultrasound if the patient is complaining of right upper quadrant pain. Otherwise, follow-up GI consultation recommended. 3. Mild focal urothelial thickening at the right ureteropelvic junction. This could represent a mild pyelitis less likely a urothelial lesion. Follow-up urology consultation recommended. 4. Colonic diverticulosis. No evidence for acute diverticulitis. 5. Large hiatus hernia. ACT 112: Negative or not required by law. Electronically signed by: Gabino Lyon M.D. 01/15/2022 7:[address] 01/15/22 18:[address] DOSE: HISTORY: Neck pain. fall TECHNIQUE: Multiaxial CT images of the cervical spine were performed and reformatted in the sagittal and coronal plane without the use of contrast. A dose lowering technique was utilized adhering to the principles of ALARA. COMPARISON: Cervical spine CT 01/10/2022.. FINDINGS: No fractures. No subluxation. Prevertebral soft tissues and the C1-C2 interval are intact. No pneumothorax. IMPRESSION: No fractures within the cervical spine. ACT 112: Negative or not required by law. Electronically signed by: Gabino Lyon M.D. 01/15/2022 6:[address] 01/15/22 18:[address] CONTRAST CT DOSE: 1396.53 mGy.cm HISTORY: fall, back pain TECHNIQUE: Multiaxial CT images of the chest were performed following the intravenous administration of contrast. A dose lowering technique was utilized adhering to the principles of ALARA. COMPARISON: Chest CT 01/10/2022. FINDINGS: Thyroid: Normal in size and heterogeneous in attenuation. Thoracic aorta: There is advanced atherosclerotic calcification of the thoracic aorta. There is mild ectasia of the ascending thoracic aorta which measures up to 3.5 cm diameter. The remainder of the thoracic aorta is normal in caliber, and the arch demonstrates standard 3-vessel anatomy. Heart: The heart is mildly enlarged noting a trace pericardial effusion. The coronary arteries and mitral annulus are densely calcified. Lungs and pleural spaces: Emphysema is noted. There is no airspace consolidation, pleural effusion, or pneumothorax. Foci of scarring/atelectasis are seen throughout both lungs. The trachea and central airways appear clear. A calcified granuloma is noted in the left lower lobe. Mediastinum: There is no mediastinal hematoma or lymphadenopathy. Chloe: Not well assessed without IV contrast. Axillae: There is no axillary lymphadenopathy. Upper abdomen: There is a large hiatal hernia. The majority of the stomach is located in the thoracic cavity. Only. Skeletal structures: The skeletal structures are osteopenic. There is an acute burst fracture of T8 with [id number] loss of height. There is associated paravertebral edema and minimally retropulsed fragments. A mild superior endplate compression deformity of L1 is likely chronic. No lytic or blastic bony lesions are seen. Advanced arthritic change is noted in the shoulders. There are chronic/healed left posterior rib fractures. No acute/displaced rib fracture is identified. IMPRESSION: 1. No significant change in the acute burst fracture of T8 with mild to moderate loss of height. 2. No additional acute fracture is identified. 3. Cardiomegaly and emphysema. 4. There is no airspace consolidation, pleural effusion, or pneumothorax. 5. Large hiatal hernia. 6. Additional findings as above. ACT 112: Negative or not required by law. Electronically signed by: Gabino Lyon M.D. 01/15/2022 7:[address] 01/15/22 18:[address] DOSE: HISTORY: fall TECHNIQUE: Multiaxial CT images of the head were performed without the use of intravenous contrast. Automated exposure control was utilized for this study. A dose lowering technique was utilized adhering to the principles of ALARA. Comparison: Head CT 01/10/2022. Findings: The paranasal sinuses and mastoid air cells are clear. The calvarium and skull base are intact. There is no mass, hematoma, midline shift, acute infarct. White matter hypodensity is nonspecific but suggestive of microvascular ischemic change. The ventricles and sulci demonstrate mild age-related involutional changes. 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 Impression: No significant change compared to the prior study. No acute intracranial abnormality. ACT 112: Negative or not required by law. Electronically signed by: Gabino Lyon M.D. 01/15/2022 6:51 PM Hip/Pelvis X-Ray 01/15/22 18:04 XR hip FERNANDO 2v w pelvis CLINICAL HISTORY: Fall. Bilateral hip pain. COMPARISON STUDY: None. FINDINGS: No acute fracture or dislocation within the pelvis or hips. 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 The sacrum appears intact. There are old, healed left pubic ring fractures. Contrast within the bladder from the recent CT examination. Vascular calcifications are noted. IMPRESSION: No acute fracture or dislocation within the pelvis or hips. ACT 112: Negative or not required by law. Electronically signed by: Gabino Lyon M.D. 01/15/2022 7:19 PM Code Status & VTE Plan VTE Prophylaxis Plan VTE Prophylaxis will be ordered: Yes Supervising Physician Co-Signing Physician Notes Pt is a 81 y/o F with hx of CAD s/p stent, HTN, HLD, ANIL, Depression, GERD, Insomnia and recent visit to the ER for fall and T8 compression fracture admitted for recurrent fall and UTI Per pt since she fell last week she has been having worsening generalized weakness. Today she was tried to sit on the bed, missed the bed and fell on the ground. Denied any LOC but hit her posterior scalp. Denied any dizziness, palpitation or light headedness before the fall. Also has been having darker urine and urinary frequency. Denied any dysuria or hematuria. US abd: Mild avascular gallbladder fundal wall thickening with cystic changes, more prominent than in 2014, adenomyomatosis favored. PE: Mild distress due to pain, cachectic HEENT: posterior scalp swelling but no hematoma or skin break, moist oropharynx Lungs: CTA, no wheezing or crackles Cards: Normal S1/S2, no murmur Abd: ND, NT, soft MSK: no LE edema Psych: AAOX3, normal affect A/P: Recurrent fall with hx of T8 compression fracture: -no new fracture on images -falls could be due to deconditioning vs UTI -will get PT/OT -hold tramadol and prn Xanax UTI: -will start the pt on ceftriaxone -UCx sent Mild gallbladder wall thickening: -chronic findings -recent US of the abd (from the clinic) showed possible adenomyomatosis -pt is asymptomatic Focal Urothelial thickening at the R ureteropelvic junction: -will get urology consult -treat for UTI CAD s/p stent, HTN, Depression/Anxiety: -continue home meds -hold prn Xanax Agree with A/P by Mariya Robertson PA-C (1) Compression fracture of T8 vertebra Encounter type: subsequent encounter Fracture healing: with routine healing Qualified Code(s): S22.060D - Wedge compression fracture of T7-T8 vertebra, subsequent encounter for fracture with routine healing (2) Fall Encounter type: initial encounter Qualified Code(s): W19.XXXA - Unspecified fall, initial encounter
[2022-01-15] MEDS ORDERED: ACETAMINOPHEN 325 MG TAB PO PRN (23:37)
[2022-01-15] MEDS ORDERED: POLYETHYLENE (MIRALAX) 17 GM PACK PO PRN (23:37)
[2022-01-15] MEDS ORDERED: DOCUSATE SODIUM 100 MG CAP PO PRN (23:37)
[2022-01-15] MEDS ORDERED: ONDANSETRON INJ 2 MG/ML 2 ML VIAL IV PRN (23:37)
[2022-01-15] MEDS ORDERED: MECLIZINE HCL 25 MG TAB PO PRN (23:37)
[2022-01-16] MEDS: METOPROLOL TARTRATE 25 MG TAB PO SCH ×3 (00:06→20:32)
[2022-01-16] MEDS: SIMVASTATIN 20 MG TAB PO SCH ×2 (00:06→20:31)
--- NOTE | 2022-01-16 02:36 | Urology Consultation ---
Date of Consultation January 16, 2022 Assessment & Plan (1) Pyelitis: Patient has been admitted on the hospitalist service. We recommend proceeding as follows: Difficult to tell if the patient has CVA tenderness with percussion on exam as she has back pain related to her fall she has suffered a vertebral fracture. Patient has been given Rocephin since admission. Would recommend continuous medication as her urinalysis is suggestive of urinary tract infection. Blood and urine cultures have been sent so her antibiotics can be further tailored based on culture results as well as her clinical response. If patient continues to have symptoms and there is concern for anatomic abnormality consideration can be given to cystoscopy which can be performed on a nonemergent basis Remainder of plan as directed by primary service History of Present Illness Reason for Consultation: Concern for pyelitis on CT scan Attending Physician: Franklyn Srinivasan MD History of Present Illness This is an 81-year-old female who presented to [facility] secondary to a fall. Patient says that she was attempting to sit down and took a misstep when she fell to the ground. Patient said that she bumped her back when she fell and since then she has been having pain. In addition the patient says she hit her head but did not have any loss of consciousness. Since admission the patient has had labs and imaging which I independently reviewed. CT scan of the abdomen pelvis showed mild focal thickening at the ri ght ureteropelvic junction that was felt to potentially represent a urothelial lesion or a pyelitis. Cervical spine CT scan showed no fractures. CT scan of patient's chest showed a burst fracture at the T8 level. No evidence of pneumonia or pneumothorax. A CT scan of the head showed no acute intracranial abnormality and bilateral hip x-rays did not show any evidence of hip fractures. Labs include a CBC her white blood cell count and platelet count were normal. Her hemoglobin and hematocrit were 11.6 and 35.4. Chemistry profile showed sodium, potassium, BUN, and creatinine were all normal. A urinalysis showed 2+ blood. The specimen was also positive for nitrites and had 1+ leukocyte Estrace. There were 10-30 white blood cells per high-power field and 4+ bacteria. A COVID test was noted to be negative. We been asked to see the patient for concern for pyelitis on CT scan. The patient says that she that she does have urinary frequency but denies any dysuria. He denies any hematuria. She does report back pain but notes that this has been present since her recent fall. At the time of my interview she was resting comfortably in bed in no distress. Allergies Allergy/AdvReac Type Severity Reaction Status Date / Time atorvastatin [From Lipitor] Allergy Intermediate Rash Verified 01/15/22 23:44 codeine Allergy Intermediate RASH Verified 01/15/22 18:37 oxycodone Allergy Unknown Unknown Verified 01/15/22 18:37 Home Medications Medication Instructions Recorded Confirmed Type acetaminophen 500 mg tablet 1,000 mg PO Q6H PRN 01/10/22 01/15/22 History (Tylenol Extra Strength) alprazolam 0.5 mg tablet 0.5 mg PO Q6 PRN 01/10/22 01/15/22 History aspirin 81 mg tablet,delayed 81 mg PO DAILY 01/10/22 01/15/22 History release docusate sodium 100 mg capsule 100 mg PO BID PRN 01/10/22 01/15/22 History (Colace) ferrous fumarate-vitamin C 66 1 tab PO QAM 01/10/22 01/15/22 History mg-125 mg chewable tablet meclizine 25 mg tablet 25 mg PO TID PRN 01/10/22 01/15/22 History metoprolol tartrate 25 mg tablet 25 mg PO BID 01/10/22 01/15/22 History nitroglycerin 0.4 mg sublingual 0.4 mg SUBLINGUAL DIRECTED PRN 01/10/22 01/15/22 History tablet pantoprazole 40 mg tablet,delayed 40 mg PO QAM 01/10/22 01/15/22 History release polyethylene glycol 3350 17 gram 17 g PO DAILY PRN 01/10/22 01/15/22 History oral powder packet (Miralax) sertraline 100 mg tablet 100 mg PO QAM 01/10/22 01/15/22 History simvastatin 20 mg tablet 20 mg PO QPM 01/10/22 01/15/22 History tramadol 50 mg tablet (Ultram) 50 mg PO Q6H PRN #30 tab 01/10/22 01/15/22 Rx Patient History Medical History Left forearm fracture Surgical History H/O eye surgery Hx of appendectomy Family History Mother Diabetes Father Heart disease Social History Smoking Status: Former smoker Tobacco Type: Cigarettes Number of Years Since Quit: 11; Hx Alcohol Use: No Feels Safe at Home: Yes Review of Systems Constitutional: no fever and no chills Eyes: no eye pain Ear, Nose, Mouth, Throat: no ear pain Respiratory: no cough Cardiovascular: no chest pain Gastrointestinal: + diarrhea/loose stools; no abdominal pain Genitourinary: + urinary frequency; no dysuria and no hematuria Musculoskeletal: + back pain Integumentary: no rash Neurologic: + falls Physical Exam Constitutional: WD/WN, vitals as above Eyes: no conjunctival abnormality ENMT: Ears: no hearing impairment and no external ear abnormality Neck: trachea midline Respiratory: normal respiratory effort; no respiratory distress and no labored breathing Cardiovascular: Rate/Rhythm: regular rate and regular rhythm Gastrointestinal (Abdomen): Abdomen is soft and nondistended. There is no pain with palpation Musculoskeletal: No calf tenderness Skin: no rashes Neurologic: moves all extremities Psychiatric: A+Ox3, euthymic affect Genitourinary: + CVA tenderness (Difficult to assess CVA tenderness secondary to burst fracture which is als) Results & Data ([facility]) Vital Signs (Past 12 Hours) Vital Signs Temp Pulse Pulse Resp BP BP Pulse Ox 01/16/22 00:30 77 17 155/77 H 95 01/16/22 00:06 73 21 132/66 94 01/16/22 00:00 75 23 144/76 H 93 01/15/22 23:34 76 20 133/66 94 01/15/22 21:00 36.8 C 85 16 134/65 97 01/15/22 20:30 76 23 143/75 H 94 01/15/22 20:00 82 21 152/79 H 96 01/15/22 19:30 84 18 133/66 96 01/15/22 19:26 18 141/68 H 95 01/15/22 19:00 85 23 141/68 H 94 01/15/22 18:30 80 23 165/74 H 95 01/15/22 17:48 36.6 C 78 20 174/71 H 96 PG Care Time/CCT Total # of Minutes Spent Total Time Spent with Patient: Total time spent is greater than 50% in coordination of care (as documented) at patient's floor/unit and/or counseling patient: Coding Level of Care Code 84212 Inpt Consult Level 5 Diagnoses Pyelitis N12
[2022-01-16 07:19] LABS: Hematocrit (blood only) 35.9 % (37-47); Hemoglobin 11.8 g/dL (12.0-16.0); Mean Corpuscular Hemoglobin 31.9 pg (25-34); Mean Corpuscular Hgb Conc 32.9 g/dL (32-36); Mean Platelet Volume 9.5 fL (7.4-10.4); Platelet Count 202 K/uL (130-400); RDW Coefficient of Variation 13.5 % (11.5-14.5); RDW Standard Deviation 48.1 fL (36.4-46.3); White Blood Count 6.73 K/uL (4.8-10.8)
[2022-01-16 07:46] LABS: Albumin Globulin Ratio 1.6 (0.9-2); Albumin Level 3.6 gm/dl (3.4-5.0); Bilirubin,Total 0.4 mg/dl (0.2-1.0); Calcium 8.9 mg/dl (8.5-10.1); Creatinine Clr Calc Pharmacy 70.1 ml/min; Est GFR (African American) 103.7 ml/min; Est GFR (Non-African American) 89.5 ml/min; Globulin 2.3 gm/dl (2.5-4.0); Potassium 3.4 mmol/L (3.5-5.1); Total Protein 5.9 gm/dl (6.0-8.3)
[2022-01-16] MEDS ORDERED: NON-FORMULARY MEDICATION (Ferrous Fumarate-Vitamin C 66-125 mg Tablet,Chewable) PO SCH (09:00)
[2022-01-16] MEDS: traMADol HCL 50 MG TABLET PO PRN (09:57)
[2022-01-16] MEDS: SERTRALINE HCL 100 MG TABLET PO SCH (09:57)
[2022-01-16] MEDS: ASPIRIN 81 MG ECTAB PO SCH (09:57)
[2022-01-16] MEDS: ENOXAPARIN INJ 40 MG/0.4 ML SYR SQ SCH (09:58)
[2022-01-16] MEDS: LIDOCAINE 5% 1 PATCH TD SCH (11:38)
--- NOTE | 2022-01-16 12:40 | CT Scan Report ---
THORACIC SPINE CT CT DOSE: 276.84 mGy.cm HISTORY: Follow up T8 fracture. Back pain. Fall. TECHNIQUE: Multiaxial CT images of the thoracic spine were performed and reformatted in the sagittal and coronal plane without the use of contrast. A dose lowering technique was utilized adhering to th e principles of ALARA. COMPARISON: Chest CT 01/15/2022. FINDINGS: There are trace bilateral pleural fusions. A large hiatus hernia is again noted. Emphysema. No pneumothorax. Old, healed left posterior rib fractures. Redemonstration of the T8 burst fracture. This demonstrates up to 50% loss of height centrally which has slightly progressed compared to the p rior study. Small bony fragment seen anterior to the T8 vertebral body, unchanged. There is 2 mm of r etropulsion the posterior cortex, unchanged. However, no significant central canal narrowing. There i s an old L1 compression deformity again noted. No additional acute fractures identified within the th oracic spine. Moderate paravertebral edema at the T8 level. IMPRESSION: 1. Redemonstration of the T8 burst fracture which demonstrates up to 50% loss of height centrally. Th e loss of height has slightly progressed compared to the prior study. This also demonstrates up to 2 mm of retropulsion of the posterior cortex, unchanged. However, no significant central canal narrowin g. 2. Trace bilateral pleural effusions. 3. Large hiatus hernia. 4. Old L1 compression deformities again noted. ACT 112: Negative or not required by law. Electronically signed by: Gabino Lyon M.D. 01/16/2022 12:38 PM
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
[2022-01-16] MEDS: ACETAMINOPHEN 325 MG TAB PO SCH ×2 (13:54→21:40)
--- NOTE | 2022-01-16 14:09 | Hospitalist Progress Note ---
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 she is agreeable to return home with HH but I doubt she will agree to SNF/Rehab. PT/OT eval pending Admission and Anticipated Discharge Date Admission Date: January 15, 2022 Subjective Patient initially insists she needs to be discharged today because she needs to return home to her . Later she is agreeing to stay for "one more night" Has ongoing mid back pain but it is tolerable because "I just found a good position" Physical Exam Physical Exam: frail, thin, elderly, laying in bed in position Respiratory: breathing comfortably on room air, no wheezing/rhonchi/rales Cardiovascular: regular rate and rhythm, no murmurs/rubs/gallops Gastrointestinal (Abdomen): soft, non tender, non distended Musculoskeletal: no edema Neurologic: awake, alert Results & Data Results & Data ([facility]) Vital Signs (Past 12 Hours) Vital Signs Temp Pulse Pulse Resp BP BP Pulse Ox 01/16/22 10:57 36.9 C 71 17 135/67 91 01/16/22 07:20 37 C 88 18 148/68 H 95 01/16/22 02:27 36.8 C 85 83 20 126/63 93 Laboratory Results Short CBC 01/15/22 01/16/22 Range/Units 17:44 07:01 WBC 5.06 6.73 (4.8-10.8) K/uL Hgb 11.6 L 11.8 L (12.0-16.0) g/dL Hct 35.4 L 35.9 L (37-47) % Plt Count 216 202 (130-400) K/uL BMP 01/15/22 01/16/22 17:44 07:01 Sodium 142 139 Potassium 3.8 3.4 L Chloride 107 105 Carbon Dioxide 29 28 BUN 22 13 Creatinine 0.66 0.50 L Glucose 87 93 Calcium 9.1 8.9 Liver Function 01/15/22 01/16/22 Range/Units 17:44 07:01 Total Bilirubin 0.4 0.4 (0.2-1.0) mg/dl AST 15 15 (13-39) U/L ALT 25 23 (7-52) U/L Alkaline Phosphatase 103 88 (34-104) U/L Albumin 3.6 3.6 (3.4-5.0) gm/dl Urine 01/15/22 Range/Units 19:35 Urine Color Yellow Urine Appearance Clear (Clear) Urine pH 5.5 (4.5-7.5) Ur Specific [place] > 1.045 H (1.000-1.030) Urine Protein Trace H (Negative) Urine Glucose (UA) Negative (Negative) Medications Administered Current Inpatient Medications Acetaminophen (Acetaminophen 325 Mg Tab) 650 mg PO Q8 [facility] Stop: 02/15/22 13:59 Last Admin: 01/16/22 13:54 Dose: 650 mg Documented by: Aspirin (Aspirin 81 Mg Ectab) 81 mg PO DAILY [facility] Stop: 02/15/22 08:59 Last Admin: 01/16/22 09:57 Dose: 81 mg Documented by: Docusate Sodium (Docusate Sodium 100 Mg Cap) 100 mg PO BID PRN PRN Reason: constipation Stop: 02/14/22 23:36 Enoxaparin Sodium (Enoxaparin Inj 40 Mg/0.4 Ml Syr) 40 mg SQ QAM [facility] Stop: 02/15/22 08:59 Last Admin: 01/16/22 09:58 Dose: 40 mg Documented by: Lidocaine (Lidocaine 5% 1 Patch) 1 patch TD QAM [facility] Stop: 02/15/22 09:44 Last Admin: 01/16/22 11:38 Dose: 1 patch Documented by: Meclizine HCl (Meclizine Hcl 25 Mg Tab) 25 mg PO TID PRN PRN Reason: Dizziness Stop: 02/14/22 23:36 Metoprolol Tartrate (Metoprolol Tartrate 25 Mg Tab) 25 mg PO BID [facility] Stop: 02/14/22 23:36 Last Admin: 05/04/22 09:57 Dose: 25 mg Documented by: Miscellaneous (Remove Lidoderm Patch) 1 ea N/A DAILY@2100 [facility] Stop: 02/15/22 20:59 Ondansetron HCl (Ondansetron Inj 2 Mg/Ml 2 Ml Vial) 4 mg IV Q4H PRN PRN Reason: Nausea And Vomiting Stop: 02/14/22 23:36 Last Admin: 01/16/22 08:36 Dose: 4 mg Documented by: Polyethylene Glycol (Polyethylene (Miralax) 17 Gm Pack) 17 gm PO DAILY PRN PRN Reason: Constipation Stop: 02/14/22 23:36 Sertraline HCl (Sertraline Hcl 100 Mg Tablet) 100 mg PO QAM [facility] Stop: 02/15/22 08:59 Last Admin: 01/16/22 09:57 Dose: 100 mg Documented by: Simvastatin (Simvastatin 20 Mg Tab) 20 mg PO QPM [facility] Stop: 02/14/22 23:36 Last Admin: 01/16/22 00:06 Dose: 20 mg Documented by: Tramadol HCl (Tramadol Hcl 50 Mg Tablet) 50 mg PO Q4H PRN PRN Reason: Pain Stop: 02/15/22 09:26 Last Admin: 01/16/22 09:57 Dose: 50 mg Documented by: (1) Fall Encounter type: initial encounter Qualified Code(s): W19.XXXA - Unspecified fall, initial encounter (2) Compression fracture of T8 vertebra Encounter type: subsequent encounter Fracture healing: with routine healing Qualified Code(s): S22.060D - Wedge compression fracture of T7-T8 vertebra, subsequent encounter for fracture with routine healing
[2022-01-16] MEDS: cefTRIAXone SODIUM 1,000 MG in DEXTROSE 5% 50 ML IV SCH (16:58)
[2022-01-16] MEDS: SACCHAROMYCES BOULARDII 250 MG CAP PO SCH (20:31)
[2022-01-16] MEDS: GABAPENTIN 100 MG CAP PO SCH (20:32)
[2022-01-17] MEDS: ACETAMINOPHEN 325 MG TAB PO SCH ×3 (05:47→20:49)
[2022-01-17] MEDS: traMADol HCL 50 MG TABLET PO PRN (09:16)
[2022-01-17] MEDS: ALPRAZolam 0.5 MG TABLET PO PRN ×2 (09:16→21:02)
[2022-01-17] MEDS: GABAPENTIN 100 MG CAP PO SCH ×2 (09:16→20:49)
[2022-01-17] MEDS: CHOLECALCIFEROL 5,000 UNITS 125 MCG TAB PO SCH (09:17)
[2022-01-17] MEDS: LIDOCAINE 5% 1 PATCH TD SCH (09:17)
[2022-01-17] MEDS: ASPIRIN 81 MG ECTAB PO SCH (09:17)
[2022-01-17] MEDS: SACCHAROMYCES BOULARDII 250 MG CAP PO SCH ×2 (09:17→20:49)
[2022-01-17] MEDS: ENOXAPARIN INJ 40 MG/0.4 ML SYR SQ SCH (09:17)
[2022-01-17] MEDS: METOPROLOL TARTRATE 25 MG TAB PO SCH ×2 (09:17→20:51)
[2022-01-17] MEDS: SERTRALINE HCL 100 MG TABLET PO SCH (09:18)
[2022-01-17] MEDS ORDERED: POTASSIUM CHLORIDE CRTAB 20 MEQ TABCR PO STA (09:26)
--- NOTE | 2022-01-17 10:18 | Electrocardiogram Report ---
Test Reason : Blood Pressure : / mmHG Vent. 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
--- NOTE | 2022-01-17 12:32 | Urology Progress Note ---
Date of Service January 17, 2022 Assessment & Plan (1) Pyelitis: (2) UTI (urinary tract infection): Plan: 81yo F admitted s/p fall and found to have UTI/pyelitis. - Afebrile, hemodynamically stable. - Labs reviewed from 01/16 - Wbc and creatinine normal. - Urine culture 01/15 with E.coli; Blood cultures in 1/2 prelim with alpha strep not S.pne/enteroco. - Continues on IV Ceftriaxone. - Voiding spontaneously. - Continue supportive care, antibiotic therapy, and management per primary team. - Will arrange outpatient follow-up with urology service. - Thank you for allowing us to participate in the acute care of Mrs. Horner. Please reconsult us with additional questions, concerns or changes in patient status. Admission and Anticipated Discharge Date Admission Date: January 15, 2022 Supervising Physician Co-Signing Physician Notes Discussed patient with RENNY. Agree with plan. Subjective Pt examined at bedside this AM. Awake, resting in bed on arrival. No acute distress. Reports persistent back pain. No fevers. Voiding without issue, some urinary urge/freq Feels she is emptying her bladder well. Denies hematuria or dysuria. Review of Systems Constitutional: as per Subjective / HPI Genitourinary: as per Subjective / HPI Physical Exam Constitutional: + thin and + frail appearing; no acute distress Respiratory: no respiratory distress and no labored breathing Gastrointestinal (Abdomen): Inspection/Auscultation: abdomen normal to inspection Neurologic: awake Psychiatric: Orientation: alert, oriented x 3 and cooperative Results & Data ([facility]) Vital Signs (Past 12 Hours) Vital Signs Temp Pulse Pulse Resp BP BP Pulse Ox 01/17/22 11:09 36.7 C 70 18 116/62 91 01/17/22 07:36 36.8 C 67 18 151/77 H 93 01/17/22 03:52 37.0 C 74 18 138/63 93 01/17/22 02:01 70 PG Care Time/CCT Total # of Minutes Spent Total Time Spent with Patient: Total time spent is greater than 50% in coordination of care (as documented) at patient's floor/unit and/or counseling patient: Coding Level of Care Code 13958 Subseq Hosp Care Lvl 2 Diagnoses Pyelitis N12 UTI (urinary tract infection) N39.0
--- NOTE | 2022-01-17 15:45 | Hospitalist Progress Note ---
Date of Service January 17, 2022 Assessment & Plan (1) Fall: Plan: Will need PT/OT evaluation (2) Pyelitis: Plan: -Appreciate Urology input (3) UTI (urinary tract infection): Plan: continue ceftriaxone Urine culture + E coli Blood culture 1/2 set positive for alpha strep. Possibly skin contaminant. will repeat blood cultures (4) Compression fracture of T8 vertebra: Plan: Vs Burst fracture -Appreciate Ortho input. TLSO brace ordered--patient to wear at all times except while bating (5) AAA (abdominal aortic aneurysm): Plan: - Ascending thoacic aorta measures 3.[address] imaging (6) Osteopenia: Plan: Vitamin D deficiency -started supplement (7) Weight loss: Plan: -Patient needs routine cancer screening -encourage oral intake Disposition--Patient now agreeable to SNF/Rehab if it is needed. Awaiting PT evaluation Admission and Anticipated Discharge Date Admission Date: January 15, 2022 Subjective Pain better controlled today. Patient now agreeable for rehab if that's what recommended Physical Exam Physical Exam: Thin, frail, elderly, comfortable currently Respiratory: breathing comfortably on room air, no wheezing/rhonchi/rales Cardiovascular: regular rate and rhythm, no murmurs/rubs/gallops Gastrointestinal (Abdomen): soft Musculoskeletal: no edema, no cyanosis Neurologic: awake, alert, spontaneously moving extremities Results & Data Results & Data ([facility]) Vital Signs (Past 12 Hours) Vital Signs Temp Pulse Resp BP BP Pulse Ox 01/17/22 11:09 36.7 C 70 18 116/62 91 01/17/22 07:36 36.8 C 67 18 151/77 H 93 01/17/22 03:52 37.0 C 74 18 138/63 93 Medications Administered Current Inpatient Medications Acetaminophen (Acetaminophen 325 Mg Tab) 650 mg PO Q8 KIERA Stop: 02/15/22 13:59 Last Admin: 01/17/22 14:47 Dose: 650 mg Documented by: Alprazolam (Alprazolam 0.5 Mg Tablet) 0.5 mg PO Q8H PRN PRN Reason: anxiety Stop: 02/16/22 08:32 Last Admin: 01/17/22 09:16 Dose: 0.5 mg Documented by: Aspirin (Aspirin 81 Mg Ectab) 81 mg PO DAILY KIERA Stop: 02/15/22 08:59 Last Admin: 01/17/22 09:17 Dose: 81 mg Documented by: Docusate Sodium (Docusate Sodium 100 Mg Cap) 100 mg PO BID PRN PRN Reason: constipation Stop: 02/14/22 23:36 Last Admin: 01/17/22 09:16 Dose: 100 mg Documented by: Dronabinol (Dronabinol 2.5 Mg Cap) 2.5 mg PO BID [facility] Stop: 02/15/22 20:59 Last Admin: 01/17/22 09:16 Dose: 2.5 mg Documented by: Enoxaparin Sodium (Enoxaparin Inj 40 Mg/0.4 Ml Syr) 40 mg SQ QAM [facility] Stop: 02/15/22 08:59 Last Admin: 01/17/22 09:17 Dose: 40 mg Documented by: Gabapentin (Gabapentin 100 Mg Cap) 100 mg PO BID [facility] Stop: 02/15/22 20:59 Last Admin: 01/17/22 09:16 Dose: 100 mg Documented by: Ceftriaxone Sodium 1,000 mg/ (Dextrose) 60 mls @ 100 mls/hr IV Q24H [facility]; Protocol Stop: 01/19/22 16:35 Last Infusion: 01/16/22 17:57 Dose: Infused Documented by: Lidocaine (Lidocaine 5% 1 Patch) 1 patch TD QAM [facility] Stop: 02/15/22 09:44 Last Admin: 01/17/22 09:17 Dose: Not Given Documented by: Meclizine HCl (Meclizine Hcl 25 Mg Tab) 25 mg PO TID PRN PRN Reason: Dizziness Stop: 02/14/22 23:36 Metoprolol Tartrate (Metoprolol Tartrate 25 Mg Tab) 25 mg PO BID [facility] Stop: 02/14/22 23:36 Last Admin: 01/17/22 09:17 Dose: 25 mg Documented by: Miscellaneous (Remove Lidoderm Patch) 1 ea N/A DAILY@2100 [facility] Stop: 02/15/22 20:59 Last Admin: 01/16/22 20:33 Dose: Not Given Documented by: Ondansetron HCl (Ondansetron Inj 2 Mg/Ml 2 Ml Vial) 4 mg IV Q4H PRN PRN Reason: Nausea And Vomiting Stop: 02/14/22 23:36 Last Admin: 01/16/22 08:36 Dose: 4 mg Documented by: Pantoprazole Sodium (Pantoprazole 40 Mg Tab) 40 mg PO QAM [facility] Stop: 02/17/22 08:59 Polyethylene Glycol (Polyethylene (Miralax) 17 Gm Pack) 17 gm PO DAILY PRN PRN Reason: Constipation Stop: 02/14/22 23:36 Saccharomyces Boulardii (Saccharomyces Boulardii 250 Mg Cap) 250 mg PO BID [facility] Stop: 02/15/22 20:59 Last Admin: 01/17/22 09:17 Dose: 250 mg Documented by: Sertraline HCl (Sertraline Hcl 100 Mg Tablet) 100 mg PO QAM [facility] Stop: 02/15/22 08:59 Last Admin: 01/17/22 09:18 Dose: 100 mg Documented by: Simvastatin (Simvastatin 20 Mg Tab) 20 mg PO QPM [facility] Stop: 02/14/22 23:36 Last Admin: 01/16/22 20:31 Dose: 20 mg Documented by: Tramadol HCl (Tramadol Hcl 50 Mg Tablet) 50 mg PO Q4H PRN PRN Reason: Pain Stop: 02/15/22 09:26 Last Admin: 01/17/22 09:16 Dose: 50 mg Documented by: Vitamin D (Cholecalciferol 5,000 Units 125 Mcg Tab) 5,000 units PO QAM [facility] Stop: 02/16/22 08:59 Last Admin: 01/17/22 09:17 Dose: 5,000 units Documented by: (1) Fall Encounter type: initial encounter Qualified Code(s): W19.XXXA - Unspecified fall, initial encounter (2) Compression fracture of T8 vertebra Encounter type: subsequent encounter Fracture healing: with routine healing Qualified Code(s): S22.060D - Wedge compression fracture of T7-T8 vertebra, subsequent encounter for fracture with routine healing
[2022-01-17] MEDS: cefTRIAXone SODIUM 1,000 MG in DEXTROSE 5% 50 ML IV SCH (16:12)
[2022-01-17] MEDS: SIMVASTATIN 20 MG TAB PO SCH (20:49)
[2022-01-18] MEDS: ACETAMINOPHEN 325 MG TAB PO SCH ×2 (06:18→14:13)
[2022-01-18] MEDS ORDERED: CHOLECALCIFEROL 5,000 UNITS 125 MCG TAB PO SCH (09:00)
[2022-01-18] MEDS ORDERED: PANTOprazole 40 MG TAB PO SCH ×2 (09:00)
[2022-01-18] MEDS: METOPROLOL TARTRATE 25 MG TAB PO SCH (09:18)
[2022-01-18] MEDS: SACCHAROMYCES BOULARDII 250 MG CAP PO SCH (09:20)
[2022-01-18] MEDS: SERTRALINE HCL 100 MG TABLET PO SCH (09:20)
[2022-01-18] MEDS: LIDOCAINE 5% 1 PATCH TD SCH (09:20)
[2022-01-18] MEDS: GABAPENTIN 100 MG CAP PO SCH (09:20)
[2022-01-18] MEDS: CHOLECALCIFEROL 5,000 UNITS 125 MCG TAB PO SCH (09:20)
[2022-01-18] MEDS: ASPIRIN 81 MG ECTAB PO SCH (09:21)
[2022-01-18] MEDS: ENOXAPARIN INJ 40 MG/0.4 ML SYR SQ SCH (09:21)
[2022-01-18] MEDS: ALPRAZolam 0.5 MG TABLET PO PRN (11:31)
[2022-01-18] MEDS: traMADol HCL 50 MG TABLET PO PRN (11:31)
--- NOTE | 2022-01-18 18:32 | Discharge Summary ---
Date of Service January 18, 2022 Admission HPI Per Admitting Provider This is an 81 yo F with PMHx of frequent falls, compression fracture of T8, AAA, osteopenia, who presents here after fall earlier today. She attempted to sit down, missed the chair and fell down to the ground. There is a bump on the back of her head, but says this may have been left over from falling when she was here in the ER last . She admits to hitting her head but denies LOC today. There is no family at bedside to say if this was witnessed by anyone else. She has been taking tramadol as prescribed the last few days which was prescribed last week for pain after her fall. She is also taking her xanax tablets at home sometimes up to the 3 times daily as prescribed, and did take one this morning because her back was hurting so badly. She was dismissed from home health last week, and prior to this they were coming twice per week. With lifting her head off the bed she admits to dizziness. She reports poor appetite and has lost 30 lbs within the past few months. She is drinking one boost sup plement per day but concerned that she is "wasting away". Pt has not been drinking much fluid in the past week. She denies urinary symptoms today including dysuria, incontinence or increased frequency. She lives at home with her who has dementia, and one of her sons. Principal Diagnosis T8 Burst fracture Mechanical fall at home E coli UTI Osteopenia Large hiatal hernia Discharge Exam Appears well. pain is controlled. Wearing her brace currently Breathing comfortably on room air Regular rate and rhythm No lower extremity edema Discharge Data Allergies Allergy/AdvReac Type Severity Reaction Status Date / Time atorvastatin [From Lipitor] Allergy Intermediate Rash Verified 01/15/22 23:44 codeine Allergy Intermediate RASH Verified 01/15/22 18:37 oxycodone Allergy Unknown Unknown Verified 01/15/22 18:37 Consultations 01/15/22 20:09 ED Decision to Admit Stat 01/15/22 20:39 Consult Urology Routine 01/16/22 09:13 Consult Orthopedic Surgery Routine Ordered Studies 01/15/22 18:03 CT abd pelvis IV con only Urgent CT cervical spine wo con Urgent CT chest diagnostic w con Urgent CT head/brain wo con Urgent 01/16/22 11:16 CT thoracic spine wo con Routine Hospital Course (1) Fall: (2) Pyelitis: (3) UTI (urinary tract infection): (4) Osteopenia: (5) Weight loss: (6) Burst fracture of thoracic vertebra: Mrs Anca Horner is a 81 year old female who lives at home with her son and cares for her who has dementia presented to the ER on 01/15 for worsening back pain after several falls at home. Here, she was found to have a T8 burst fracture and was seen by Orthopedic surgery and recommended conservative management due to her active infection (UTI) and was fitted for a TLSO brace. She was evaluated by PT and recommended rehab. Initially she was insistent on returning home to care for her but later agreed to rehab. Her pain was well controlled on scheduled tylenol, gabapentin and PRN oxycodone. She was found to have E coli UTI and finished treatment course here. UTI was not cavazos catheter associated, was present on admission and with no associated sepsis. One set of blood cultures was contaminated. She was found to be vitamin deficient and started on supplement. She was also noted to have very poor appetite and weight loss and trial of Marinol initiated here. Total Time Total Time Spent Total Time Spent (In Minutes): 35 Discharge Plan Discharge Items Patient Disposition: Transfer [facility] Fac Reason For Visit: FALL Discharge Diagnosis: T8 Burst fracture Mechanical fall at home E coli UTI Osteopenia Large hiatal hernia Condition on Discharge: Good Activity: As commented below Lifting: No more than 5 pounds Weightbearing: Full weightbearing Non-emergency contact: Primary Care Provider and Surgeon Call non-emergency contact if: you have any medication questions and your symptoms worsen Follow-up/Referrals: Teddy Bradley DO [Surgeon] - Pepito Rios DO [Primary Care Provider] - Diet: Regular Addtl Attending Provider Instructions: Wear your brace at all times. You can take it off for bathing Please follow up with Dr Bradley Pending Studies at Discharge: No Stand-Alone Forms: My [facility] Skilled Items Patient informed of condition?: Yes DNR: Yes Discharge Level of Care: Skilled Communicable Disease: No Discharge Prognosis: Stable Lines: None Urinary Catheter: No Medications and DC Order Prescriptions: New acetaminophen 325 mg capsule 650 mg PO TID 7 Days Qty: 42 RF: 0 gabapentin 100 mg capsule 100 mg PO BID 14 Days Qty: 28 RF: 0 cholecalciferol (vitamin D3) [Vitamin D3] 125 mcg (5,000 unit) tablet 5,000 unit PO DAILY 30 Days Qty: 30 RF: 0 tramadol 50 mg tablet 50 mg PO Q6H PRN (Reason: pain) 7 Days Qty: 14 RF: 0 dronabinol 2.5 mg capsule 2.5 mg PO BID 15 Days Qty: 30 RF: 0 Continued sertraline 100 mg tablet 100 mg PO QAM RF: 0 alprazolam 0.5 mg tablet 0.5 mg PO Q6 PRN (Reason: Anxiety) RF: 0 pantoprazole 40 mg tablet,delayed release (DR/EC) 40 mg PO QAM RF: 0 simvastatin 20 mg tablet 20 mg PO QPM RF: 0 ferrous fumarate-vitamin C 66-125 mg Tablet,Chewable 1 tab PO QAM RF: 0 metoprolol tartrate 25 mg tablet 25 mg PO BID RF: 0 polyethylene glycol 3350 [Miralax] 17 gram Powder In Packet 17 g PO DAILY PRN (Reason: Constipation) RF: 0 aspirin 81 mg Tablet,Delayed Release (Dr/Ec) 81 mg PO DAILY RF: 0 meclizine 25 mg Tablet 25 mg PO TID PRN (Reason: Dizziness) RF: 0 nitroglycerin 0.4 mg tablet, sublingual 0.4 mg sublingual DIRECTED PRN (Reason: Chest Pain) RF: 0 docusate sodium [Colace] 100 mg Capsule 100 mg PO BID PRN (Reason: Constipation) RF: 0 Discontinued acetaminophen [Tylenol Extra Strength] 500 mg Tablet 1,000 mg PO Q6H PRN (Reason: Pain) RF: 0 tramadol [Ultram] 50 mg tablet 50 mg PO Q6H PRN (Reason: pain) Qty: 30 RF: 0 Discharge Orders: Discharge Order (Routine); Ordered 01/18/22 Ordered By: Franklyn Srinivasan Admission Data Admit Date/Time: 01/17/22 17:57 Attending Provider: Franklyn Srinivasan Admit Provider: Uche Mcelroy Primary Care Provider: Pepito Rios Other Providers: Melany Mendosa ; Андрей Santana ; Teddy Bradley Other Interventions: Discharge Summary Assessment (RN) Last Done: 01/18/22 15:24
== END 2022-01-18 16:26 | DRG 552 ==
LOC: EDINP 17:43 → ED 17:43 → SUATTDRO 20:39 → 2W 01-16 01:19